=== PATIENT | male | born 1935 | race Caucasian/White ===

== ENCOUNTER 2017-01-14 07:47 | Observation (INO) | payer OTHER ==
[~2017-01-14] VITALS: Ht 188 cm; Wt 93.5 kg
[2017-01-14] VITALS (11 sets, daily range): BP systolic 124–177; BP diastolic 53–82; PULSE 62–74; RESP 16–20; TEMP 96.8–97.8; O2SAT 93–97
[~2017-01-14 07:47] MED LIST: AMLO5TAB96 PO; ASPI81 PO; ATOR20TA PO; ATOR20TA42 PO; CARD180C5 PO; FISHCAP; GABA300C3 PO; MULT1TAB84; PRIN5TAB PO; VITA-13 PO
[2017-01-14] MEDS ORDERED: VITA400C5 (08:09)
[2017-01-14] MEDS ORDERED: ATOR20TA15 PO (08:09)
[2017-01-14] MEDS ORDERED: SPECTRAVITE (08:09)
[2017-01-14] MEDS ORDERED: LISI10TA3 PO (08:09)
[2017-01-14] MEDS ORDERED: DILT0.05 PO (08:09)
[2017-01-14] MEDS ORDERED: CALCCHW9 CHEW (08:09)
[2017-01-14] MEDS ORDERED: OMEG100010 (08:09)
[2017-01-14] MEDS ORDERED: ASPI-110 PO (08:09)
[2017-01-14 08:37] LABS: AUTOMATED NEUTROPHIL # 13.1 TH/MM3 (1.8-7.7); BASOPHIL # 0.1 TH/MM3 (0-0.2); BASOPHIL % 0.5 % (0.0-2.0); EOSINOPHIL # 0.4 TH/MM3 (0-0.4); EOSINOPHIL % 2.3 % (0.0-4.0); HEMATOCRIT 33.6 % (39.0-51.0); LYMPH % 12.6 % (9.0-44.0); LYMPHOCYTE # 2.1 TH/MM3 (1.0-4.8); MEAN CELL VOLUME 80.2 FL (80.0-100.0); MEAN CORPUSCULAR HEMOGLOBIN 25.4 PG (27.0-34.0); MEAN CORPUSCULAR HGB CONC 31.7 % (32.0-36.0); MONO % 5.1 % (0.0-8.0); NEUT % 79.5 % (16.0-70.0); PLATELET COUNT 459 TH/MM3 (150-450); RED BLOOD COUNT 4.18 MIL/MM3 (4.50-5.90); RED CELL DISTRIBUTION WIDTH 25.9 % (11.6-17.2); WHITE BLOOD COUNT 16.5 TH/MM3 (4.0-11.0)
[2017-01-14 08:39] LABS: HEMO FLAGS AUTO DIFF
[2017-01-14] MEDS: SODIUM CHLOR 0.9% 1000 ML INJ 1,000 ML IV SCH (09:00)
[2017-01-14] MEDS ORDERED: MIDAZOLAM HCL 5 MG/5 ML VIAL ONE (09:15)
[2017-01-14] MEDS ORDERED: fentaNYL CITRATE 250 MCG/5 ML AMP ONE (09:15)
[2017-01-14 09:16] LABS: BANDS 10 % (0-6); BASOPHILS 2 % (0-2); EOSINOPHILS 1 % (0-4); METAMYELOCYTES 2 % (0-1); MYELOCYTES 4 % (0-0); NEUTROPHIL # MANUAL DIFF 11.1 TH/MM3 (1.8-7.7); POLYS (SEG NEUTROPHILS) 51 % (16-70); WBC DIFF SAMPLE 100
[2017-01-14 09:20] LABS: OVALOCYTES 1+ (NORMAL); PLATELET ESTIMATE SMEAR HIGH (NORMAL); PLATELET MORPHOLOGY NORMAL (NORMAL); SCAN/DIFF FINAL DIFF MANUAL; TEARDROP RBCS 1+ (NORMAL)
[2017-01-14 10:10] LABS: BONE MARROW PROCESSING COMPLETE; IRON STAIN DONE; JENNER GIEMSA STAIN DONE
--- NOTE | 2017-01-14 12:10 | RADRPT ---
EXAM DATE/TIME: 01/14/2017 09:26 [facility] COMPARISON: CT PELVIS W/O CONTRAST, January 14, 2017, 11:46. INDICATIONS : Thrombocytopenia and leukocytopenia. SEDATION TIME: 30 minutes BIOPSY SITE: Right iliac MEDICATION(S): 1.) 2 mg midazolam (Versed) IV 2.) 150 mcg fentanyl (Sublimaze) IV DEVICE(S): 1.) 11 gauge Bone marrow biopsy needle MEDICAL HISTORY : Hypertension. Cardiovascular disease. SURGICAL HISTORY : None. ENCOUNTER: Initial ACUITY: 1 day PAIN SCORE: 0/10 LOCATION: Right iliac A total of one core specimen(s) were obtained and sent to the laboratory for pathologic evaluation. PROCEDURE: 1. CT guided bone marrow biopsy. 2. Conscious sedation with continuous EKG and oximetry monitoring. 3. EKG and oximetry remained stable throughout the procedure. Prior to the procedure informed consent was obtained. Any appropriate prior imaging studies were rev iewed. The site was prepped in a sterile fashion. Full sterile technique was used, including cap, mask, rosa m rile gloves and gown and a large sterile sheet. Hand hygiene and 2% chlorhexidine and/or betadine/al cohol prep was utilized per protocol for cutaneous antisepsis. The skin and subcutaneous tissues wer e infiltrated with local anesthetic solution. With CT guidance the previously identified target was localized. Biopsy was performed using the presc ribed needle as above. Following biopsy marrow aspiration was performed with repeat puncture. Adequa te hemostasis was obtained with compression at the puncture site. Follow-up CT scan reveals no hemorrhage. Conscious sedation was performed with the prescribed dosages and duration as above. The patient corine ated the procedure well and there were no complications. EKG and oximetry remained stable throughout the procedure. The patient was sent to Radiology Outpatient Unit in stable condition. CONCLUSION: 1. Uncomplicated CT guided bone marrow aspirate. 2. Uncomplicated CT guided bone marrow biopsy. Liam Trent MD FACR on January 14, 2017 at 12:08 Board Certified Radiologist. This report was verified electronically.
--- NOTE | 2017-01-14 12:32 | RADRPT ---
EXAM DATE/TIME: 01/14/2017 11:46 [facility] COMPARISON: CT NEEDLE BIOPSY BONE MARROW, January 14, 2017, 9:26. INDICATIONS: Right hip pain after bone marrow biopsy ORAL CONTRAST: No oral contrast ingested. RADIATION DOSE: 19.47 CTDIvol (mGy) MEDICAL HISTORY: Hypertension. Cardiovascular disease SURGICAL HISTORY: None. ENCOUNTER: Initial ACUITY: 1 day PAIN SCALE: 6/10 LOCATION: Right hip TECHNIQUE: Volumetric scanning of the pelvis was performed. Using automated exposure control and adjustment of the mA and/or kV according to patient size, radiation dose was kept as low as reasonably achievable t o obtain optimal diagnostic quality images. FINDINGS: Mr. Romero was complaining of right leg pain post bone marrow biopsy of the right posterior superior iliac crest. Repeat CT scan to this area reveals no hematoma. There is no abnormality along the sciatic nerve. T here is asymmetry of the right piriform when compared to the left and I believe it is related to the total hip arthroplasty. There are extensive degenerative changes in the lumbar spine with a moderate lateral recess stenosis at L4-5 and L5-S1. CONCLUSION: 1. I do not see evidence for a hematoma. 2. Prominent left testicle with what looks like a hydrocele. Liam Trent MD FACR on January 14, 2017 at 12:09 Board Certified Radiologist. This report was verified electronically.
--- NOTE | 2017-01-14 14:33 | RADRPT ---
EXAM DATE/TIME: 01/14/2017 13:24 [facility] COMPARISON: No previous studies available for comparison. INDICATIONS : Inability to ambulate. MEDICAL HISTORY : Hypertension. SURGICAL HISTORY : Fusion, lumbar. Right hand, Cataracts, and testicle. ENCOUNTER: Initial ACUITY: 1 day PAIN SCORE: 8/10 LOCATION: Right hip down to leg TECHNIQUE: Multiplanar multisequence MRI of the lumbar spine was performed without contrast. FINDINGS: MRI of the lumbar spine was performed on this individual who has an inability to ambulate following a bone marrow biopsy. Marrow signal in the lumbar vertebrae shows some moderate discogenic changes. Conus is unremarkable at L1-2. L1-L2: Mild inner space ridging is present. There is mild spinal stenosis. L2-L3: The thecal sac has a normal diameter. No evidence of disc bulge or protrusion. The neural foramina are patent bilaterally. L3-L4: There is marked inner space ridging present with marked spinal stenosis. L4-L5: There is mild inner space ridging present causing some flattening of the anterior thecal space. L5-S1: Moderate inner space ridging is present. There is bilateral neural foramina encroachment. SI joints are normal. 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 Liam Trent MD FACR on January 14, 2017 at 14:07 Board Certified Radiologist. This report was verified electronically.
[2017-01-14 14:54] LABS: PROTHROMBIN TIME - PATIENT 11.4 SEC (9.8-11.6)
[2017-01-14 14:56] LABS: APTT (PATIENT) 31.5 SEC (24.3-30.1)
--- NOTE | 2017-01-14 15:23 | RADRPT ---
EXAM DATE/TIME: 01/14/2017 13:24 [facility] COMPARISON: CT NEEDLE BIOPSY BONE MARROW, January 14, 2017, 9:26. CT PELVIS W/O CONTRAS T, January 14, 2017, 11:46. INDICATIONS : Pain. Inability to ambulate. MEDICAL HISTORY : Hypertension. SURGICAL HISTORY : Fusion, lumbar. right hand, cataracts, and testicle. ENCOUNTER: Initial ACUITY: 1 day PAIN SCORE: 8/10 LOCATION: Right hip. TECHNIQUE: Multiplanar, multisequence magnetic resonance imaging of the pelvis was performed. FINDINGS: MRI of the pelvis was performed in this individual who is status post a bone marrow bio psy to the right posterior superior iliac spine and now complains of leg pain. There is a moderate sized hematoma in the gluteus on the right that does extend into the obturator fo ramen. This is removed from the puncture site in the posterior superior iliac spine. The left hemipelvis is unremarkable. CONCLUSION: Large gluteus hematoma as described above on the right. Liam Trent MD FACR on January 14, 2017 at 14:23 Board Certified Radiologist. This report was verified electronically.
[2017-01-14 15:25] LABS: BICARBONATE 23.2 MEQ/L (21.0-32.0); POTASSIUM 4.2 MEQ/L (3.5-5.1)
[2017-01-14] MEDS ORDERED: IOHEXOL 350 MG/ML 10 ML VIAL (for RAD DIAG) IV ONE (15:47)
[2017-01-14] MEDS ORDERED: oxyCODONE/ACETAMINOPHEN 7.5 MG/325 MG TAB PO ONE (16:00)
--- NOTE | 2017-01-14 16:00 | RADRPT ---
EXAM DATE/TIME: 01/14/2017 15:22 [facility] COMPARISON: CT PELVIS W/O CONTRAST, January 14, 2017, 11:46. INDICATIONS : Right gluteal hematoma IV CONTRAST: 75 cc Omnipaque 350 (iohexol) IV RADIATION DOSE: 19.47 CTDIvol (mGy) MEDICAL HISTORY : Hypertension. Cardiovascular disease SURGICAL HISTORY : None. ENCOUNTER: Initial ACUITY: 1 day PAIN SCALE: 6/10 LOCATION: Right hip TECHNIQUE: Volumetric scanning of the pelvis was performed. Using automated exposure control and adjustment of the mA and/or kV according to patient size, radiation dose was kept as low as reasonably achievable t o obtain optimal diagnostic quality images. FINDINGS: CT angiography: The distal infrarenal aorta is mildly aneurysmal at 3.5 cm. It is widely patent. The common iliac, in ternal iliac and external iliac circulation is widely patent bilaterally with only minimal atheroscle rotic disease. The examination demonstrates a small area of hematoma within the patient's right gluteal region. Ther e is a very small, ill-defined pool of contrast which appears to be emanating from the posterior aspe ct of the right iliac wing itself. There is no defined vessel in the vicinity of the area of contrast collection. There is a small tract within the bone which is somewhat away from this area from the mg lora's recent CT-guided biopsy. CT source data: There is no free fluid within the pelvis. No iliac or inguinal adenopathy is seen. The prostate is en larged. There is a small left inguinal hernia. CONCLUSION: 1. The exam demonstrates a hematoma within the right gluteus. There is a small wisp of contrast adjac ent to the posterior iliac wing on the right which is felt to be the etiology of the hemorrhage. Ther e is no large or definable vessel which can be seen in this area. This area is somewhat more medial t waller the patient's biopsy tract which is within the bone. 2. 3.5 cm infrarenal abdominal aortic aneurysm. Mulugeta Trent MD on January 14, 2017 at 15:49 Board Certified Radiologist. This report was verified electronically.
--- NOTE | 2017-01-14 16:07 | RADRPT ---
EXAM DATE/TIME: 01/14/2017 14:29 [facility] COMPARISON: No previous studies available for comparison. INDICATIONS : Hematoma s/p bone marrow biopsy. MEDICAL HISTORY : Aneurysm, abdominal. Hypercholesterolemia. Benign prostatic hyperplasia, (BPH) Thyroid nodules. Perip heral neuropathy. Hypertension. SURGICAL HISTORY : Bone marrow biopsy 01/14/17. Tonsillectomy. Testicle removed. Left hip and knee surgery. Spinal fusion . ENCOUNTER: Initial ACUITY: 1 day PAIN SCORE: 0/10 LOCATION: Right buttocks region. AREA EVALUATED: Right buttocks, distal to puncture site. FINDINGS: Ultrasound of the right buttocks reveals a large hematoma without obvious arterial extravasation seen by color Doppler. CONCLUSION: Ultrasound of the right buttocks reveals a large hematoma without obvious arterial extravasation seen by color Doppler. Liam Trent MD FACR on January 14, 2017 at 16:01 Board Certified Radiologist. This report was verified electronically.
[2017-01-14] MEDS: oxyCODONE/ACETAMINOPHEN 5 MG/325 MG TAB PO PRN ×2 (16:29→20:40)
--- NOTE | 2017-01-14 16:42 | HHI.HP ---
[facility] Service [facility] Primary Care Physician Maurice Baires Do, MD Admission Diagnosis Diagnoses: Chief Complaint: bleeding post BM aspiration Travel History International Travel<30 Days: No Contact w/Intl Traveler <30 Da: No Traveled to Known Affected Are: No History of Present Illness Patient is a very pleasant 8-0 years old male with history of hypertension, hyperlipidemia. History of NEFTALI. As OP ff by Dr. Granda for anemia and leukocytosis. Came in today for CT guided bone marrow biopsy for further evaluation. Post procedure - as patient was being evaluated for discharge was unable to bear weight on the right leg and had difficulty ambulating- on imaging study showed a large gluteus mohan hematoma. Admitted for further evaluation and management Patient also has been having diarrhea as OP with weight loss of about 25 lbs and was scheduled to have OP colonoscopy by Dr. Lundy. He state easy bruising but denies any melena, hematochezia, hematuria or any epistaxis Patient currently complains of pain 4 out of 10 from post biopsy site. Denies any radiculopathy or leg pain, denies any tingling numbness of the leg. Review of Systems Constitutional: DENIES: Diaphoretic episodes, Fatigue, Fever, Weight gain, Weight loss, Chills, Dizziness, Change in appetite, Night Sweats Endocrine: DENIES: Heat/cold intolerance, Polydipsia, Polyuria, Polyphagia Eyes: DENIES: Blurred vision, Diplopia, Eye inflammation, Eye pain, Vision loss , Photosensitivity, Double Vision Ears, nose, mouth, throat: DENIES: Tinnitus, Hearing loss, Vertigo, Nasal discharge, Oral lesions, Throat pain, Hoarseness, Ear Pain, Running Nose, Epistaxis, Sinus Pain, Toothache, Odynophagia Respiratory: COMPLAINS OF: Apneas Cardiovascular: DENIES: Chest pain, Palpitations, Syncope, Dyspnea on Exertion , PND, Lower Extremity Edema, Orthopnea, Claudication Gastrointestinal: DENIES: Abdominal pain, Black stools, Bloody stools, Constipation, Diarrhea, Nausea, Vomiting, Difficulty Swallowing, Anorexia Genitourinary: DENIES: Sexual dysfunction, Urinary frequency, Urinary incontinence, Urgency, Hematuria, Dysuria, Nocturia, Penile Discharge, Testicular Pain, Testicular Swelling Musculoskeletal: DENIES: Joint pain, Muscle aches, Stiffness, Joint Swelling, Back pain, Neck pain Integumentary: DENIES: Abnormal pigmentation, Nail changes, Pruritus, Rash Hematologic/lymphatic: COMPLAINS OF: Bruising (per - easy bruising, but no melena, hematochezia, epistaxis), DENIES: Lymphadenopathy Immunologic/allergic: DENIES: Eczema, Urticaria Neurologic: DENIES: Abnormal gait, Headache, Localized weakness, Paresthesias, Seizures, Speech Problems, Tremor, Poor Balance Psychiatric: DENIES: Anxiety, Confusion, Mood changes, Depression, Hallucinations, Agitation, Suicidal Ideation, Homicidal Ideation, Delusions Past Family Social History Past Medical History hypertension hyperlipidemia NEFTALI chronic back pain/neuropathy Past Surgical History left hip replacement right knee surgery right testicle removal - pe report benign lower thoracic spine surgery Allergies: Coded Allergies: Morphine (Verified Allergy, Unknown, Hives, 01/14/17) Uncoded Allergies: IV PAIN MED (Allergy, Mild, 01/14/17) PT STATES GOT HIVES FROM A MANAGER [employer] IN THE 'S WHEN HAD HIP SURGERY. CANT REMEMBER WHAT MEDICATION IT IS Family History none contributory Social History smoker quit 18 years ago drinks occasionally Physical Exam Vital Signs Vital Signs Date Time Temp Pulse Resp B/P Pulse Ox O2 Delivery O2 Flow Rate FiO2 01/14/17 15:40 96.8 69 16 177/82 97 01/14/17 14:30 64 16 124/57 94 01/14/17 12:30 62 16 148/53 96 01/14/17 12:00 97.8 65 20 141/69 96 01/14/17 11:15 67 16 154/67 95 01/14/17 10:45 69 18 158/64 93 01/14/17 10:15 74 18 162/68 94 01/14/17 10:00 97.5 70 18 151/66 93 01/14/17 08:10 97 Room Air 01/14/17 08:03 97.6 69 20 171/77 97 Physical Exam GENERAL: This is a well-nourished, well-developed patient, in no apparent distress. SKIN: No rashes, ecchymoses or lesions. Cool and dry. HEAD: Atraumatic. Normocephalic. No temporal or scalp tenderness. EYES: Pupils equal round and reactive. Extraocular motions intact. No scleral icterus. No injection or drainage. ENT: Nose without bleeding, purulent drainage or septal hematoma. Throat without erythema, tonsillar hypertrophy or exudate. Uvula midline. Airway patent. NECK: Trachea midline. No JVD or lymphadenopathy. Supple, nontender, no meningeal signs. CARDIOVASCULAR: Regular rate and rhythm without murmurs, gallops, or rubs. RESPIRATORY: Clear to auscultation. Breath sounds equal bilaterally. No wheezes , rales, or rhonchi. GASTROINTESTINAL: Abdomen soft, non-tender, nondistended. No hepato-splenomegaly , or palpable masses. No guarding. MUSCULOSKELETAL: Extremities without clubbing, cyanosis, or edema. No joint tenderness, effusion, or edema noted. No calf tenderness. Negative Homans sign bilaterally. NEUROLOGICAL: Awake and alert. Cranial nerves II through XII intact. moves all extremities equally, grossly sensory intact, ++ femoral pulses, both extremities warm ++ DP.PT ++ right LE Laboratory Laboratory Tests Test 01/14/17 01/14/17 01/14/17 08:25 14:30 14:45 White Blood Count 16.5 Red Blood Count 4.18 Hemoglobin 10.6 Hematocrit 33.6 Mean Corpuscular Volume 80.2 Mean Corpuscular Hemoglobin 25.4 Mean Corpuscular Hemoglobin 31.7 Concent Red Cell Distribution Width 25.9 Platelet Count 459 Mean Platelet Volume 8.3 Neutrophils (%) (Auto) 79.5 Lymphocytes (%) (Auto) 12.6 Monocytes (%) (Auto) 5.1 Eosinophils (%) (Auto) 2.3 Basophils (%) (Auto) 0.5 Neutrophils # (Auto) 13.1 Lymphocytes # (Auto) 2.1 Monocytes # (Auto) 0.8 Eosinophils # (Auto) 0.4 Basophils # (Auto) 0.1 CBC Comment AUTO DIFF Differential Total Cells 100 Counted Neutrophils % (Manual) 51 Band Neutrophils % 10 Lymphocytes % 18 Monocytes % 12 Eosinophils % 1 Basophils % 2 Neutrophils # (Manual) 11.1 Metamyelocytes 2 Myelocytes 4 Differential Comment FINAL DIFF MANUAL Platelet Estimate HIGH Platelet Morphology Comment NORMAL Tear Drop Cells 1+ Ovalocytes 1+ Prothrombin Time 11.4 Prothromb Time International 1.0 Ratio Activated Partial 31.5 Thromboplast Time Sodium Level 138 Potassium Level 4.2 Chloride Level 108 Carbon Dioxide Level 23.2 Anion Gap 7 Blood Urea Nitrogen 25 Creatinine 0.95 Estimat Glomerular Filtration 76 Rate Random Glucose 113 Calcium Level 8.5 Result Diagram: 01/14/17 0825 01/14/17 1445 Imaging Last Impressions Pelvis CTA 01/14/17 1517 Signed Impressions: Service Date/Time: Saturday, January 14, 2017 15:22 - CONCLUSION: 1. The exam demonstrates a hematoma within the right gluteus. There is a small wisp of contrast adjacent to the posterior iliac wing on the right which is felt to be the etiology of the hemorrhage. There is no large or definable vessel which can be seen in this area. This area is somewhat more medial than the patient's biopsy tract which is within the bone. 2. 3.5 cm infrarenal abdominal aortic aneurysm. Mulugeta Trent MD Bone Biopsy CT 01/14/17 0000 Signed Impressions: Service Date/Time: Saturday, January 14, 2017 09:26 - CONCLUSION: 1. Uncomplicated CT guided bone marrow aspirate. 2. Uncomplicated CT guided bone marrow biopsy. Liam Trent MD FACR Assessment and Plan Assessment and Plan 81 years old male with anemia and leukocytosis S/P CT guided BM biopsy with right gluteus mohan large hematoma post procedure repeat CBC now. and in am type and x match 2 units RBC standby will consult Dr. Granda Bed Rest. neurovascular check q 4. Percocet 5/325 mg po prn for pain Dr. Trent will be ff along with us Anemia and leukocytosis- r/o myeloproliferative disorder work up in progress S/P BM biopsy Dr. Granda will be ff along with us History of Hypertension hold meds History of hyperlipidemia on statins History of NEFTALI to bring in CPAP from home chronic back pain. just takes tylenol at home Percocet 5/325 mg prn for pain Code Status full code Discussed Condition With patient and Physician Certification 2 Midnight Certification Type: Admission for Inpatient Services Order for Inpatient Services The services are ordered in accordance with Medicare regulations or non- Medicare payer requirements, as applicable. In the case of services not specified as inpatient-only, they are appropriately provided as inpatient services in accordance with the 2-midnight benchmark. Estimated LOS (days): 3 days is the estimated time the patient will need to remain in the hospital, assuming treatment plan goals are met and no additional complications. Post-Hospital Plan: Not yet determined Bhupinder Villalba MD Jan 14, 2017 16:42
[2017-01-14 17:25] LABS: HEMATOCRIT 29.1 % (39.0-51.0); MEAN CELL VOLUME 79.6 FL (80.0-100.0); MEAN CORPUSCULAR HEMOGLOBIN 26.3 PG (27.0-34.0); PLATELET COUNT 408 TH/MM3 (150-450); RED BLOOD COUNT 3.65 MIL/MM3 (4.50-5.90); RED CELL DISTRIBUTION WIDTH 25.2 % (11.6-17.2); WHITE BLOOD COUNT 16.7 TH/MM3 (4.0-11.0)
[2017-01-14 17:27] LABS: REVIEW FLAG FINAL
[2017-01-14] MEDS: ATORVASTATIN 20 MG TAB PO SCH (20:39)
[2017-01-14] MEDS: DESMOPRESSIN ACETATE 4 MCG/ML VIAL SQ SCH (21:00)
[2017-01-15] VITALS: BP 125/60; PULSE 63; RESP 15; TEMP 96.5; O2SAT 95
[2017-01-15 04:00] VITALS: BP 132/70; PULSE 65; RESP 15; TEMP 95.7; O2SAT 93
[2017-01-15 06:52] LABS: HEMATOCRIT 28.7 % (39.0-51.0); MEAN CELL VOLUME 78.9 FL (80.0-100.0); MEAN CORPUSCULAR HEMOGLOBIN 25.6 PG (27.0-34.0); MEAN CORPUSCULAR HGB CONC 32.5 % (32.0-36.0); PLATELET COUNT 364 TH/MM3 (150-450); RED BLOOD COUNT 3.64 MIL/MM3 (4.50-5.90); REVIEW FLAG FINAL; WHITE BLOOD COUNT 14.6 TH/MM3 (4.0-11.0)
[2017-01-15 08:00] VITALS: BP 153/75; PULSE 76; RESP 18; TEMP 97.3; O2SAT 95
--- NOTE | 2017-01-15 08:50 | MB ---
cc: CHRISTOS HERNANDEZ M.D. DATE OF CONSULTATION January 15, [address] Villalba REASON FOR CONSULTATION Hematology consult to render opinion regarding patient with a hematoma at the bone marrow biopsy. HISTORY OF PRESENT ILLNESS The patient is a very pleasant 81-year-old male admitted to the hospital for observation after he developed a hematoma after the bone marrow biopsy. He recently presented with anemia, leukocytosis and thrombocytosis. He was also found to have splenomegaly. His clinical picture was suspicious for a primary bone marrow disorder. He was sent for bone marrow aspirate and biopsy yesterday. He stated that before he was discharged from the observation unit, he started having pain in the right thigh and hip. He had difficulty bearing weight. He was found to have a hematoma by ultrasound. Pelvic CTA showed that he likely developed hematoma from the bone marrow biopsy site. He was admitted for further evaluation. His hemoglobin trended down from 10.6 to 9.6. When I saw him this morning, his pain is a little bit better. He still has tenderness behind the buttock and the right thigh area. He denies any chest pain or palpitation. He has no shortness of breath, cough, any nausea or vomiting. His diarrhea has resolved. Denies any other history of bleeding, bruising. He was taking an aspirin before the procedure but that has been discontinued. PAST MEDICAL HISTORY 1. Abdominal aortic aneurysm. 2. Osteoarthritis. 3. Cataracts. 4. Chronic back pain. 5. Hyperlipidemia. 6. Hypertension. 7. Paroxysmal SVT. 8. Sleep apnea. 9. Hemorrhoid. 10. Skin cancer. PAST SURGICAL HISTORY 1. Right hand surgery. 2. Colonoscopy. 3. Knee surgery. 4. Left hip surgery. 5. Spine surgery. 6. Testicle removed for benign reason. FAMILY HISTORY Noncontributory. SOCIAL HISTORY He has quit smoking. He has a 50 pack-year smoking history. He drinks occasionally. ALLERGIES NO KNOWN DRUG ALLERGIES. OUTPATIENT MEDICATIONS 1. Aspirin. 2. Atorvastatin. 3. Calcium. 4. Cardizem . 5. Fish oil. 6. Lisinopril. 7. Multivitamin. REVIEW OF SYSTEMS Constitutional: he recently had lost 25 pounds. Eyes: Denies blurry vision. No double vision. ENT: No mouth sores or voice changes. Cardiovascular: No chest pressure, no palpitation. Respiratory: No shortness of breath, cough. GI: Had diarrhea but it has improved. Denies any abdominal pain, any melena or hematochezia. : Denies dysuria or hematuria. MUSCULOSKELETAL: As above. HEMATOLOGY: As above. ENDOCRINE: Negative. HEMATOLOGY: Negative. PSYCHIATRIC: Negative. NEUROLOGIC: Negative. PHYSICAL EXAMINATION VITAL SIGNS: Temperature 95.7, blood pressure 132/70, O2 saturation 93% on room air. GENERAL: He is alert, oriented x 3, in no acute distress. HEENT: Atraumatic, normocephalic. Pupils equal, round and light. Extraocular muscles intact. No scleral icterus. Oropharynx - Dry mucosa. No lesion or thrush. NECK: No thyromegaly. No palpable masses. LYMPHATICS: No palpable cervical, clavicular, axillary or inguinal lymph nodes. CARDIOVASCULAR: Regular S1-S2. Normal. LUNGS: Clear to auscultation. Bilateral wheezing, no rhonchi. Abdomen: Soft, nontender. Could not palpate liver. There is some fullness in the left upper quadrant but no tenderness. EXTREMITIES: No cyanosis, no clubbing. Trace bilateral ankle edema. No calf tenderness. BACK: No paravertebral tenderness. SKIN: No rash or petechiae. I do not see any hematoma at the biopsy site. There is no bleeding. He is to tender in the right thigh area. NEUROLOGIC: Nonfocal. LABORATORY DATA Reviewed. ASSESSMENT 1. Right gluteus hematoma after a bone marrow biopsy. Ultrasound showed a large hematoma in the right buttock. Pelvic CT angiogram also showed a right gluteal hematoma and likely bleed from the bone marrow biopsy site in the right posterior iliac wing. There was no large or defined blood vessel noted. This is rather unusual to bleed from a bone marrow biopsy. He has no personal history of bleeding disorder. He was taking aspirin and fish oil. He possibly could also have other platelet dysfunction due to underlying bone marrow disorder. His hemoglobin trended down from 10.6 to 9.6. This morning it is stable at 9.3. His pain has improved. He still has some pain in the right thigh area. He is going to try to sit and see if he could bear weight, then he could be discharged home once he is able to bear weight and walk as the bleed bleeding appeared to have stopped. 2. Anemia with leukocytosis and thrombocytosis first noted in October. Workup showed he has splenomegaly. I suspect he may have chronic myelogenous leukemia. FISH study for BCR/ABL as well as LEVON-2 mutation are pending. He just had a bone marrow biopsy and result is pending. His white blood cell count is stable. His platelet count trended back down to normal. 3. Splenomegaly. He has no symptoms. This may be due to chronic myeloproliferative disorder. 4. Right lung small density which may be infectious etiology. He recently had upper respiratory infection but that has resolved. He has no symptoms at this time. 5. Loose stool and diarrhea. He lost about 25 pounds. He is seeing a senior java software developer. His diarrhea has now resolved. 6. Obstructive sleep apnea. 7. Chronic obstructive pulmonary disease. 8. Hypertension. 9. Chronic back pain. PLAN 1. Discussed with the patient as above. 2. Monitor CBC. 3. He can be discharged home once he is able to bear weight and walk. 4. Discussed the case with Dr. Liam Trent. Thank you, Dr. Villalba, for asking me to see this patient. MD SHARA Rojas/VALERIE /8:10 AM /8:25 AM [facility]
[2017-01-15] MEDS: SODIUM CHLOR 0.9% 1000 ML INJ 1,000 ML IV SCH (09:00)
--- NOTE | 2017-01-15 09:23 | HHI.PR ---
Subjective Remarks pain with weight bearing po pain meds helping no problems with voiding no nuasea or vomiting Objective Vitals Vital Signs Date Time Temp Pulse Resp B/P Pulse Ox O2 Delivery O2 Flow Rate FiO2 01/15/17 04:00 95.7 65 15 132/70 93 01/15/17 01:13 18 01/15/17 00:00 96.5 63 15 125/60 95 01/14/17 20:00 97.3 67 17 138/65 94 01/14/17 17:45 97.7 62 19 137/65 93 01/14/17 15:40 96.8 69 16 177/82 97 01/14/17 14:30 64 16 124/57 94 01/14/17 12:30 62 16 148/53 96 01/14/17 12:00 97.8 65 20 141/69 96 01/14/17 11:15 67 16 154/67 95 01/14/17 10:45 69 18 158/64 93 01/14/17 10:15 74 18 162/68 94 01/14/17 10:00 97.5 70 18 151/66 93 I/O 01/14/17 01/14/17 01/14/17 01/15/17 01/15/17 01/15/17 07:00 15:00 23:00 07:00 15:00 23:00 Intake Total 0 ml 240 ml Output Total 950 ml 350 ml Balance -950 ml -110 ml Intake Oral 0 ml 240 ml Output Urine Total 950 ml 350 ml Result Diagram: 01/15/17 0613 01/14/17 1445 Imaging Last Impressions Pelvis CTA 01/14/17 1517 Signed Impressions: Service Date/Time: Saturday, January 14, 2017 15:22 - CONCLUSION: 1. The exam demonstrates a hematoma within the right gluteus. There is a small wisp of contrast adjacent to the posterior iliac wing on the right which is felt to be the etiology of the hemorrhage. There is no large or definable vessel which can be seen in this area. This area is somewhat more medial than the patient's biopsy tract which is within the bone. 2. 3.5 cm infrarenal abdominal aortic aneurysm. Mulugeta Trent MD Pelvis CT 01/14/17 1144 Signed Impressions: Service Date/Time: Saturday, January 14, 2017 11:46 - CONCLUSION: 1. I do not see evidence for a hematoma. 2. Prominent left testicle with what looks like a hydrocele. Liam Trent MD FACR Soft Tissue Ultrasound 01/14/17 Signed Impressions: Service Date/Time: Saturday, January 14, 2017 14:29 - CONCLUSION: Ultrasound of the right buttocks reveals a large hematoma without obvious arterial extravasation seen by color Doppler. Liam Trent MD FACR Pelvis MRI 01/14/17 Signed Impressions: Service Date/Time: Saturday, January 14, 2017 13:24 - CONCLUSION: Large gluteus hematoma as described above on the right. 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 Liam Trent MD FACR Bone Biopsy CT 01/14/17 Signed Impressions: Service Date/Time: Saturday, January 14, 2017 09:26 - CONCLUSION: 1. Uncomplicated CT guided bone marrow aspirate. 2. Uncomplicated CT guided bone marrow biopsy. Liam Trent MD FACR Objective Remarks awake and alert, oriented x 3 anicteric lungs clear regular rhythm abdomen soft, nontender post BM biopsy site- no erythema, no ecchymosis, + induration- non tender extremities no edema, ++ peripheral pulses, both LE warm, no calf tenderness pain with weight bearing on the right LE Procedures 01/14- BM biopsy A/P Assessment and Plan 81 years old male with anemia and leukocytosis Right gluteus mohan large hematoma post BM biopsy procedure 01/14 H and H stable type and x match [address] Granda ff Bed Rest. neurovascular check q 4. Percocet 5/325 mg po prn for pain Anemia and leukocytosis- r/o myeloproliferative disorder work up in progress S/P BM biopsy Dr. Granda will be ff along with us History of Hypertension Cardizem CD 180 mg daily History of hyperlipidemia on statins History of NEFTALI to bring in CPAP from home chronic back pain. just takes tylenol at home Percocet 5/325 mg prn for pain PT consult- rickey;uate- gait and need for any ambulation assistive device for safety and stability while healing Bhupinder Villalba MD Jan 15, 2017 09:23
[2017-01-15] MEDS: DILTIAZEM-CD 180 MG CAP ER PO SCH (09:35)
[2017-01-15] MEDS: DESMOPRESSIN ACETATE 4 MCG/ML VIAL SQ SCH ×2 (09:36→21:26)
[2017-01-15] MEDS: oxyCODONE/ACETAMINOPHEN 5 MG/325 MG TAB PO PRN ×2 (15:33→21:26)
[2017-01-15 16:00] VITALS: BP 120/57; PULSE 62; RESP 18; TEMP 96.8; O2SAT 94
[2017-01-15 20:00] VITALS: BP 131/60; PULSE 65; RESP 16; TEMP 96.5; O2SAT 94
[2017-01-15] MEDS: ATORVASTATIN 20 MG TAB PO SCH (21:26)
[2017-01-16] VITALS: BP 128/65; PULSE 66; RESP 16; TEMP 98.2; O2SAT 94
[2017-01-16 04:00] VITALS: BP 134/77; PULSE 62; RESP 16; TEMP 96.1; O2SAT 95
[2017-01-16] MEDS ORDERED: WALKER WHEELS/F1 MIS (07:29)
--- NOTE | 2017-01-16 07:43 | HHI.PR ---
Subjective Remarks patient complains only when pain with weight bearing able to up and ambulate with a walker voiding and moving bowels with no difficulty Objective Vitals Vital Signs Date Time Temp Pulse Resp B/P Pulse Ox O2 Delivery O2 Flow Rate FiO2 01/16/17 04:00 96.1 62 16 134/77 95 01/16/17 00:00 98.2 66 16 128/65 94 01/15/17 22:26 18 01/15/17 20:00 96.5 65 16 131/60 94 01/15/17 16:00 96.8 62 18 120/57 94 01/15/17 08:00 97.3 76 18 153/75 95 I/O 01/15/17 01/15/17 01/15/17 01/16/17 01/16/17 01/16/17 07:00 15:00 23:00 07:00 15:00 23:00 Intake Total 240 ml 1180 ml 250 ml Output Total 350 ml Balance -110 ml 1180 ml 250 ml Intake Oral 240 ml 1180 ml 250 ml Output Urine Total 350 ml # Voids 3 1 # Bowel Movements 0 0 Result Diagram: 01/15/17 0613 01/14/17 1445 Imaging Last Impressions Pelvis CTA 01/14/17 1517 Signed Impressions: Service Date/Time: Saturday, January 14, 2017 15:22 - CONCLUSION: 1. The exam demonstrates a hematoma within the right gluteus. There is a small wisp of contrast adjacent to the posterior iliac wing on the right which is felt to be the etiology of the hemorrhage. There is no large or definable vessel which can be seen in this area. This area is somewhat more medial than the patient's biopsy tract which is within the bone. 2. 3.5 cm infrarenal abdominal aortic aneurysm. Mulugeta Trent MD Pelvis CT 01/14/17 1144 Signed Impressions: Service Date/Time: Saturday, January 14, 2017 11:46 - CONCLUSION: 1. I do not see evidence for a hematoma. 2. Prominent left testicle with what looks like a hydrocele. Liam Trent MD FACR Soft Tissue Ultrasound 01/14/17 0000 Signed Impressions: Service Date/Time: Saturday, January 14, 2017 14:29 - CONCLUSION: Ultrasound of the right buttocks reveals a large hematoma without obvious arterial extravasation seen by color Doppler. Liam Trent MD FACR Pelvis MRI 01/14/17 0000 Signed Impressions: Service Date/Time: Saturday, January 14, 2017 13:24 - CONCLUSION: Large gluteus hematoma as described above on the right. Liam Trent MD FACR Lumbar Spine MRI 01/14/17 0000 Signed Impressions: Service Date/Time: Saturday, January 14, 2017 13:24 - CONCLUSION: Extensive degenerative change in the lumbar spine. Liam Trent MD FACR Bone Biopsy CT 01/14/17 0000 Signed Impressions: Service Date/Time: Saturday, January 14, 2017 09:26 - CONCLUSION: 1. Uncomplicated CT guided bone marrow aspirate. 2. Uncomplicated CT guided bone marrow biopsy. Liam Trent MD FACR Objective Remarks awake and alert, oriented x 3 anicteric lungs clear regular rhythm abdomen soft, nontender post BM biopsy site- no erythema, no ecchymosis, + mild induration- softer on palpation, nontender extremities no edema, ++ peripheral pulses, both LE warm, no calf tenderness Procedures 01/14- BM biopsy A/P Assessment and Plan 81 years old male with anemia and leukocytosis Right gluteus mohan large hematoma post BM biopsy procedure 01/14- clinically improving H and H stable- recheck today type and x match [address] Granda ff/Dr. Trent ff Percocet 5/325 mg po prn for pain Anemia and leukocytosis- r/o myeloproliferative disorder work up in progress S/P BM biopsy- pathology pending Dr. Granda - OP ff up History of Hypertension Cardizem CD 180 mg daily History of hyperlipidemia on statins History of NEFTALI to bring in CPAP from home chronic back pain. Percocet 5/325 mg prn for pain Case management consult- DME- [facility] arrange for home health PT and nursing Bhupinder Villalba MD Jan 16, 2017 07:43 Bhupinder Villalba MD Jan 16, 2017 07:43
[2017-01-16 07:50] VITALS: BP 131/60; PULSE 68; RESP 20; TEMP 96.4; O2SAT 94
[2017-01-16 09:47] LABS: HEMATOCRIT 29.3 % (39.0-51.0)
[2017-01-16] MEDS: DILTIAZEM-CD 180 MG CAP ER PO SCH (11:07)
[2017-01-16] MEDS: DESMOPRESSIN ACETATE 4 MCG/ML VIAL SQ SCH (11:07)
--- NOTE | 2017-01-16 14:13 | PD.ONC.PN ---
Subjective Subjective Remarks Afebrile overnight. Patient resting in bed watching TV with his at bedside. He is asking when he can be discharged home. He states he can walk with the assistance of a walker and has been doing so around the room. Objective Data Date Time Temp Pulse Resp B/P Pulse Ox O2 Delivery O2 Flow Rate FiO2 01/16/17 07:50 96.4 68 20 131/60 94 01/16/17 04:00 96.1 62 16 134/77 95 01/16/17 00:00 98.2 66 16 128/65 94 01/15/17 22:26 18 01/15/17 20:00 96.5 65 16 131/60 94 01/15/17 16:00 96.8 62 18 120/57 94 01/16/17 01/16/17 01/16/17 07:00 15:00 23:00 Intake Total 250 ml Balance 250 ml Result Diagram: 01/16/1717 01/14/17 1445 Laboratory Results Laboratory Tests Test 01/16/17:17 Hemoglobin 9.3 GM/DL Hematocrit 29.3 % Imaging Studies Last 48 hours Impressions Pelvis CTA 01/14/17 1517 Signed Impressions: Service Date/Time: Saturday, January 14, 2017 15:22 - CONCLUSION: 1. The exam demonstrates a hematoma within the right gluteus. There is a small wisp of contrast adjacent to the posterior iliac wing on the right which is felt to be the etiology of the hemorrhage. There is no large or definable vessel which can be seen in this area. This area is somewhat more medial than the patient's biopsy tract which is within the bone. 2. 3.5 cm infrarenal abdominal aortic aneurysm. Mulugeta Trent MD Administered Medications Medications (Trade) Dose Ordered Sig/Akil Route PRN Reason Start Time Stop Time Status Last Admin Dose Admin Sodium Chloride (NS 1000 ml Inj) 1,000 ml @ 30 mls/hr Q24H IV 01/14/17 09:00 01/14/17 09:00 Oxycodone/ Acetaminophen (Percocet 5-325 Mg) 1 tab Q4H PRN PO PAIN 01/14/17 16:15 01/15/17 21:26 Desmopressin Acetate (Ddavp Inj) 2 mcg Q12HR SQ 01/14/17 21:00 01/16/17 11:07 Atorvastatin Calcium (Lipitor) 20 mg HS PO 01/14/17 21:00 01/15/17 21:26 Diltiazem HCl (Cardizem Cd) 180 mg DAILY PO 01/15/17 09:00 01/16/17 11:07 Objective Remarks GENERAL: Older male, lying in bed in no distress. SKIN: Warm and dry. HEAD: Normocephalic. EYES: No injection or drainage. NECK: Supple, trachea midline. CARDIOVASCULAR: +S1/S2. Faint murmur noted. RESPIRATORY: Lungs clear, few crackles at bases. GASTROINTESTINAL: Abdomen soft, non-tender. +Splenomegaly. EXTREMITIES: No cyanosis, or edema. MUSCULOSKELETAL: Uses walker for ambulation. NEUROLOGICAL: No obvious focal deficit. Awake, alert, and oriented x3. 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 -- FISH study for BCR/ABL, as well as LEVON-2 mutation pending. This pt is being worked up for anemia, leukocytosis and thrombocytosis. He has splenomegaly. (2) Hematoma Status: Acute Plan: -- CT of pelvis shows hematoma of R gluteal muscle -- This is likely bone marrow biopsy site in the right posterior iliac wing. -- Hemoglobin is stable. Assessment 81 y/o male who had a bone marrow biopsy as an outpatient and had difficulty bearing weight on his R leg afterwards. Plan 1. He is able to ambulate around his room with a walker. 2. We will await results of BMB, FISH panel. 3. Hgb stable. 4. OK for discharge from hematology standpoint. Attending Statement The exam, history, and the medical decision-making described in the above note were completed with the assistance of the mid-level provider. I reviewed and agree with the findings presented. I attest that I had a [id number] encounter with the patient on the same day, and personally performed and documented my assessment and findings in the medical record. Right thigh pain slightly better. Able to ambulate with walker. Hgb stable. Flowcytometry showed non specific abnormalities but no acute leukemia or lymphoproliferative disease noted. Await Bcr/Abl and final path. Can be d/c from hematology standpoint and f/u at clinic. Problem Qualifiers (1) Anemia: Qualified Code: D64.9 - Anemia, unspecified type Christine Melendez Jan 16, 2017 14:13 Ever Granda MD Jan 16, 2017 14:50
[2017-01-16] MEDS ORDERED: BETAMETHASONE/CLOTRIMAZOLE CREAM 15 GM TOPICAL SCH (14:45)
--- NOTE | 2017-01-16 14:55 | HHI.FF ---
Face to Face Verification Diagnosis: (1) Hematoma (2) diff ambulatin (3) Anemia Physical Therapy Order: Evaluate and Treat, Improve ambulation Occupational Therapy Order: Gross motor coordination Home Health Nursing Order: Medical education Signs/symptoms of disease process Home Health Aide Order: To Assist In: enamel burner and meal prep Space Controller Order: To Evaluate: Support services I have seen patient Kev Romero on 01/16/17. My clinical findings support the need for the requested home health care services because: Ltd mobility - disease progression Deconditioned w/ increased weakness I certify that my clinical findings support that this patient is homebound because: Need for psychosocial assistance Bhupinder Villalba MD Jan 16, 2017 14:55
[2017-01-16] MEDS ORDERED: LOTR15T TOPICAL (15:00)
[2017-01-16] MEDS ORDERED: OXYC1TAB63 PO (15:00)
--- NOTE | 2017-01-16 15:22 | HHI.DS ---
Discharge Summary Admission Date Jan 14, 2017 at 15:26 Discharge Date: Jan 16, 2017 Admitting Diagnosis (1) Hematoma ICD Code: T14.8 Diagnosis: Principal (2) Anemia ICD Code: D64.9 Diagnosis: Principal Procedures 01/14- BM biopsy Brief History - From Admission Patient is a very pleasant 8-0 years old male with history of hypertension, hyperlipidemia. History of NEFTALI. As OP ff by Dr. Granda for anemia and leukocytosis. Came in today for CT guided bone marrow biopsy for further evaluation. Post procedure - as patient was being evaluated for discharge was unable to bear weight on the right leg and had difficulty ambulating- on imaging study showed a large gluteus mohan hematoma. Admitted for further evaluation and management Patient also has been having diarrhea as OP with weight loss of about 25 lbs and was scheduled to have OP colonoscopy by Dr. Lundy. He state easy bruising but denies any melena, hematochezia, hematuria or any epistaxis Patient currently complains of pain 4 out of 10 from post biopsy site. Denies any radiculopathy or leg pain, denies any tingling numbness of the leg. CBC/BMP: 01/16/17 0917 01/14/17 1445 Significant Findings Laboratory Tests Test 01/14/17 01/14/17 01/14/17 01/14/17 08:25 14:30 14:45 16:13 White Blood Count 16.5 TH/MM3 16.7 TH/MM3 (4.0-11.0) (4.0-11.0) Red Blood Count 4.18 MIL/MM3 3.65 MIL/MM3 (4.50-5.90) (4.50-5.90) Hemoglobin 10.6 GM/DL 9.6 GM/DL (13.0-17.0) (13.0-17.0) Hematocrit 33.6 % 29.1 % (39.0-51.0) (39.0-51.0) Mean Corpuscular Hemoglobin 25.4 PG 26.3 PG (27.0-34.0) (27.0-34.0) Mean Corpuscular Hemoglobin 31.7 % Concent (32.0-36.0) Red Cell Distribution Width 25.9 % 25.2 % (11.6-17.2) (11.6-17.2) Platelet Count 459 TH/MM3 (150-450) Neutrophils (%) (Auto) 79.5 % (16.0-70.0) Neutrophils # (Auto) 13.1 TH/MM3 (1.8-7.7) Band Neutrophils % 10 % (0-6) Monocytes % 12 % (0-8) Neutrophils # (Manual) 11.1 TH/MM3 (1.8-7.7) Metamyelocytes 2 % (0-1) Myelocytes 4 % (0-0) Platelet Estimate HIGH (NORMAL) Tear Drop Cells 1+ (NORMAL) Ovalocytes 1+ (NORMAL) Activated Partial 31.5 SEC Thromboplast Time (24.3-30.1) Chloride Level 108 MEQ/L (98-107) Blood Urea Nitrogen 25 MG/DL (7-18) Estimat Glomerular Filtration 76 ML/MIN (>89) Rate Random Glucose 113 MG/DL (74-106) Mean Corpuscular Volume 79.6 FL (80.0-100.0) Test 01/15/17 01/16/17 06:13 09:17 White Blood Count 14.6 TH/MM3 (4.0-11.0) Red Blood Count 3.64 MIL/MM3 (4.50-5.90) Hemoglobin 9.3 GM/DL 9.3 GM/DL (13.0-17.0) (13.0-17.0) Hematocrit 28.7 % 29.3 % (39.0-51.0) (39.0-51.0) Mean Corpuscular Volume 78.9 FL (80.0-100.0) Mean Corpuscular Hemoglobin 25.6 PG (27.0-34.0) Red Cell Distribution Width 25.0 % (11.6-17.2) Imaging Last Impressions Pelvis CTA 01/14/17 8086 Signed Impressions: Service Date/Time: Saturday, January 14, 2017 15:22 - CONCLUSION: 1. The exam demonstrates a hematoma within the right gluteus. There is a small wisp of contrast adjacent to the posterior iliac wing on the right which is felt to be the etiology of the hemorrhage. There is no large or definable vessel which can be seen in this area. This area is somewhat more medial than the patient's biopsy tract which is within the bone. 2. 3.5 cm infrarenal abdominal aortic aneurysm. Mulugeta Trent MD Pelvis CT 01/14/17 1144 Signed Impressions: Service Date/Time: Saturday, January 14, 2017 11:46 - CONCLUSION: 1. I do not see evidence for a hematoma. 2. Prominent left testicle with what looks like a hydrocele. Liam Trent MD FACR Soft Tissue Ultrasound 01/14/17 0000 Signed Impressions: Service Date/Time: Saturday, January 14, 2017 14:29 - CONCLUSION: Ultrasound of the right buttocks reveals a large hematoma without obvious arterial extravasation seen by color Doppler. Liam Trent MD FACR Pelvis MRI 01/14/17 0000 Signed Impressions: Service Date/Time: Saturday, January 14, 2017 13:24 - CONCLUSION: Large gluteus hematoma as described above on the right. Liam Trent MD FACR Lumbar Spine MRI 01/14/17 0000 Signed Impressions: Service Date/Time: Saturday, January 14, 2017 13:24 - CONCLUSION: Extensive degenerative change in the lumbar spine. iLam Trent MD FACR Bone Biopsy CT 01/14/17 0000 Signed Impressions: Service Date/Time: Saturday, January 14, 2017 09:26 - CONCLUSION: 1. Uncomplicated CT guided bone marrow aspirate. 2. Uncomplicated CT guided bone marrow biopsy. Liam Trent MD FACR PE at Discharge awake and alert, oriented x 3 anicteric lungs clear regular rhythm abdomen soft, nontender post BM biopsy site- no erythema, no ecchymosis, + mild induration- softer on palpation, nontender extremities no edema, ++ peripheral pulses, both LE warm, no calf tenderness Pt update on day of discharge awake and alert, VS stable ambulating around with no difficulty or limitation advise patient and to come back to ER if develops severe pain, or difficulty ambulating Hospital Course 81 years old male with anemia and leukocytosis Right gluteus mohan large hematoma post BM biopsy procedure 01/14- clinically improving H and H stable- recheck today type and x match [address] Granda ff/Dr. Trent ff Percocet 5/325 mg po prn for pain Anemia and leukocytosis- r/o myeloproliferative disorder work up in progress S/P BM biopsy- pathology pending Dr. Granda - OP ff up History of Hypertension Cardizem CD 180 mg daily History of hyperlipidemia on statins History of NEFTALI to bring in CPAP from home chronic back pain. Percocet 5/325 mg prn for pain Case management consult- DME- [facility] arrange for home health PT and nursing Pt Condition on Discharge: Stable Discharge Disposition: Disch w/ Home Health Serv Discharge Time: <= 30 minutes Discharge Instructions DIET: Follow Instructions for: Heart Healthy Diet Speech Therapy-Diet Recommends: Regular Activities you can perform: Weight Bearing as Andrae Activities to Avoid: Contact Sports, Lifting/Bending, Prolonged Standing, Strenuous Activity Follow up Referrals: Oncology - 1 Week with CHEW New Medications: Walker with Front Wheels (Walker with Front Wheels) 1 Mis Mis 1 EA .ROUTE DIRECTED ambulation #1 Ref 0 EA Betamethasone-Clotrimazole Topical (Lotrisone Topical) 1-0.05% Cream 1 APPLIC TOPICAL Q12HR PRURAS Days 7 TUBE Oxycodone-Acetaminophen (Oxycodone-Acetaminophen) 5-325 mg Tab 1 TAB PO Q6HR PRN PAIN #28 TAB Continued Medications: Atorvastatin (Atorvastatin) 20 Mg Tab 20 MG PO HS Cholesterol Management #30 Ref 0 TAB Calcium Carbonate-Vitamin D W/Minerals (Calcium 1200) 1,200-1,000 Mg-Unit Chew 1 TAB CHEW DAILY Nutritional Supplement Ref 0 TAB Diltiazem ER 24 HR (Diltiazem ER 24 HR) 180 Mg Adeline 180 MG PO DAILY #30 Ref 0 TAB Lisinopril (Lisinopril) 10 Mg Tab 10 MG PO DAILY #30 Ref 0 TAB Wickett-3 Fatty Acids (Wickett 3 1000 mg) 1 Cap Cap DAILY Vitamin E (E-400) 400 Unit Cap DAILY ([spectravite]) 1 CAPLET DAILY Discontinued Medications: Aspirin (Aspirin 81) 81 Mg Tabdr 81 MG PO DAILY Ref 0 TAB Bhupinder Villalba MD Jan 16, 2017 15:22
== END 2017-01-16 15:38 | disposition home or self-care (01) ==
LOC: HRAD 07:47 → HRIP 07:50 → EDSTATUS 08:00 → HRIP 15:26 → HRAD 15:27 → HOCB 16:44
PROVIDERS: ADMIT Internal Medicine; ATTEND Internal Medicine
DX: M96.841 Postprocedural hematoma of a musculoskeletal structure following other procedure (principal); D72.829 Elevated white blood cell count, unspecified; D64.9 Anemia, unspecified; D75.89 Other specified diseases of blood and blood-forming organs; R16.1 Splenomegaly, not elsewhere classified; J44.9 Chronic obstructive pulmonary disease, unspecified; G47.33 Obstructive sleep apnea (adult) (pediatric); G89.29 Other chronic pain; M54.9 Dorsalgia, unspecified; I10 Essential (primary) hypertension; I47.1 Supraventricular tachycardia; I25.10 Atherosclerotic heart disease of native coronary artery without angina pectoris; R19.7 Diarrhea, unspecified; Z79.82 Long term (current) use of aspirin; Z87.891 Personal history of nicotine dependence; Z85.828 Personal history of other malignant neoplasm of skin
CPT/HCPCS: 38221; 72148; 72191; 72192; 72195; 76999; 77012; 80048; 81270; 85007; 85014; 85018; 85027; 85097; 85610; 85730; 86850; 86900; 86901; 86920; 88184; 88185; 88237; 88264; 88305; 88311; 88313; 88377; 97162; 99152; 99153; C1830; G0364; G0378; G8987; G8988; J2250; J2597; J3010; J7030; Q9967; 81219; 81402; 88280

== ENCOUNTER 2017-09-02 13:00 | Day surgery (SDC) | payer OTHER ==
[~2017-09-02 13:00] MED LIST changes: -AMLO5TAB96 PO; -ASPI81 PO; -ATOR20TA PO; +ATOR20TA15 PO; -ATOR20TA42 PO; +CALCCHW9 CHEW; -CARD180C5 PO; +DILT0.05 PO; -FISHCAP; -GABA300C3 PO; +LISI10TA3 PO; +LOTR15T TOPICAL; -MULT1TAB84; +OMEG100010; +OXYC1TAB63 PO; -PRIN5TAB PO; +SPECTRAVITE; -VITA-13 PO; +VITA400C5; +WALKER WHEELS/F1 MIS
[2017-09-02 13:52] VITALS: BP 131/73; PULSE 53; RESP 16; TEMP 97; O2SAT 100
[2017-09-02 15:00] VITALS: BP 147/69; PULSE 53; RESP 16; TEMP 95.6; O2SAT 100
[2017-09-02] MEDS ORDERED: LIDOCAINE HCL 1% PF 30 ML VIAL ONE (15:05)
[2017-09-02 15:15] VITALS: BP 156/69; PULSE 54; RESP 16; O2SAT 99
--- NOTE | 2017-09-02 15:15 | RADRPT ---
EXAM DATE/TIME: 09/02/2017 14:02 [facility] COMPARISON: No previous studies available for comparison. EXTERNAL COMPARISON: [facility], US THYROID, Jul 26 2017 INDICATIONS : Right thyroid nodule. MEDICAL HISTORY : Hypothyroidism. Abdominal aortic aneurysm. Hypercholesterolemia. Hypertension. Sleep apnea. Benign pr ostatic hyperplasia. SURGICAL HISTORY : Tonsillectomy. Spinal surgery. Left hip replacement. Right knee surgery. ENCOUNTER: Initial ACUITY: 1 month PAIN SCORE: 0/10 LOCATION: Right neck ORGAN: Right thyroid lobe SPECIMENS: Three fine needle aspirate(s) submitted for pathologic evaluation. DEVICE: 22 gauge needle Post procedure scanning reveals no hematoma or other complication. The possibility does exist that the tissue obtained will be non-diagnostic. If the sample is non-betty gnostic a repeat biopsy or surgical biopsy may need to be performed. TECHNIQUE: 1. Ultrasound guidance for needle biopsy. 2. Needle biopsy. The risks, benefits and alternatives to the procedure were explained and verbal and written consent w as obtained. The site was prepped in sterile fashion. Full sterile technique was used, including ca p, mask, sterile gloves and gown and a large sterile sheet. Hand hygiene and 2% chlorhexidine and/or betadine/alcohol prep was utilized per protocol for cutaneous antisepsis. The skin and subcutaneous tissues were infiltrated with local anesthetic solution. Sterile gel and sterile probe cover were u tilized for ultrasound guidance. With the patient on the ultrasound table, images were obtained. A needle was advanced into the identified target and the number of specimens as above obtained and taveras bmitted for pathologic evaluation. The patient tolerated the procedure well and left the ultrasound suite in stable condition. CONCLUSION: Uncomplicated ultrasound guided needle biopsy. Corky Post MD on September 02, 2017 at 15:13 Board Certified Radiologist. This report was verified electronically.
--- NOTE | 2017-09-02 15:15 | RADRPT ---
EXAM DATE/TIME: 09/02/2017 14:02 [facility] COMPARISON: No previous studies available for comparison. EXTERNAL COMPARISON: [facility], US THYROID, Jul 26 2017. INDICATIONS : Left thyroid nodule. MEDICAL HISTORY : Hypercholesterolemia. Hypertension. Aneurysm, abdominal. Hypothyroidism. Hyperlipidemia. Sleep apnea. SURGICAL HISTORY : Tonsillectomy. Testicle removed. Spinal fusion. Left hip replacement. Right knee surgery. ENCOUNTER: Initial ACUITY: 1 month PAIN SCORE: 0/10 LOCATION: Left neck ORGAN: Left thyroid lobe SPECIMENS: Three fine needle aspirate(s) submitted for pathologic evaluation. DEVICE: 22 gauge needle Post procedure scanning reveals no hematoma or other complication. The possibility does exist that the tissue obtained will be non-diagnostic. If the sample is non-betty gnostic a repeat biopsy or surgical biopsy may need to be performed. TECHNIQUE: 1. Ultrasound guidance for needle biopsy. 2. Needle biopsy. The risks, benefits and alternatives to the procedure were explained and verbal and written consent w as obtained. The site was prepped in sterile fashion. Full sterile technique was used, including ca p, mask, sterile gloves and gown and a large sterile sheet. Hand hygiene and 2% chlorhexidine and/or betadine/alcohol prep was utilized per protocol for cutaneous antisepsis. The skin and subcutaneous tissues were infiltrated with local anesthetic solution. Sterile gel and sterile probe cover were u tilized for ultrasound guidance. With the patient on the ultrasound table, images were obtained. A needle was advanced into the identified target and the number of specimens as above obtained and taveras bmitted for pathologic evaluation. The patient tolerated the procedure well and left the ultrasound suite in stable condition. CONCLUSION: Uncomplicated ultrasound guided needle biopsy. Corky Post MD on September 02, 2017 at 15:13 Board Certified Radiologist. This report was verified electronically.
== END 2017-09-02 15:29 | disposition home or self-care (01) ==
LOC: HRAD 13:00 → HRIP 13:01 → HRAD 15:29
PROVIDERS: ATTEND Internal Medicine Hematology & Oncology
DX: E04.1 Nontoxic single thyroid nodule (principal); I10 Essential (primary) hypertension; E78.00 Pure hypercholesterolemia, unspecified; E03.9 Hypothyroidism, unspecified; G47.30 Sleep apnea, unspecified; N40.0 Benign prostatic hyperplasia without lower urinary tract symptoms; Z98.1 Arthrodesis status
CPT/HCPCS: 10022; 76942; 88172; 88173